=== PATIENT | male | born 1980 | race African-American/Black ===

== ENCOUNTER 2017-02-06 12:31 | Emergency (ER) | payer MEDICAID, OTHER ==
[~2017-02-06] VITALS: Ht 185.4 cm; Wt 106.6 kg
[2017-02-06 12:31] VITALS: BP 136/83
[~2017-02-06 12:31] MED LIST: AMLO10TA4 PO
== END 2017-02-06 13:37 | disposition home or self-care (01) ==
LOC: ER 12:33
DX: L03.032 Cellulitis of left toe (principal); I10 Essential (primary) hypertension; Z88.0 Allergy status to penicillin; Z79.899 Other long term (current) drug therapy
CPT/HCPCS: A4606; Z7610